=== PATIENT | male | born 1980 | race Caucasian/White ===

== ENCOUNTER → 2023-12-14 14:19 | Outpatient (REF) | payer BC, SELFPAY | LOC: RCS 14:19 | PROVIDERS: ATTENDING PHYSICIAN Nurse Practitioner Family | DX: R00.0 Tachycardia, unspecified (principal) | CPT/HCPCS: 93005 ==

== ENCOUNTER → 2024-08-08 14:40 | Outpatient (REF) | payer SELFPAY | LOC: HWRAD 14:40 | PROVIDERS: ATTENDING PHYSICIAN Nurse Practitioner Family | DX: R00.0 Tachycardia, unspecified (principal); I10 Essential (primary) hypertension; R73.09 Other abnormal glucose; R79.82 Elevated C-reactive protein (CRP) | CPT/HCPCS: 75571 ==

== ENCOUNTER → 2024-08-15 10:13 | Outpatient (REF) | payer BC, SELFPAY | LOC: RCS 10:13 | PROVIDERS: ATTENDING PHYSICIAN Nurse Practitioner Family | DX: I10 Essential (primary) hypertension (principal); R07.89 Other chest pain; R06.02 Shortness of breath; R20.2 Paresthesia of skin | CPT/HCPCS: 93017 ==